=== PATIENT | female | born 1990 | race American Indian/Alaskan Native ===

== ENCOUNTER 2021-02-04 13:19 | Outpatient (CLI) | payer MEDICAID ==
--- NOTE | 2021-02-04 15:08 | Ultrasound Report ---
ULTRASOUND BREAST BILATERAL LIMITED, 02/04/2021 CLINICAL INFORMATION / INDICATION: Short-term follow-up bilateral ultrasound. TECHNIQUE: Targeted ultrasound evaluation was performed of the area of interest. COMPARISON: Prior bilateral breast ultrasound 05/09/2020 FINDINGS: In the right breast at 1:00, 3 cm from nipple, there is an oval well-circumscribed hypoechoic mass me asuring 2.1 x 0.7 cm. In the left breast at 12:00, 4 cm from the nipple, there is an oval well-circumscribed hypoechoic mas s measuring 1.8 x 0.6 cm. Compared to the prior breast ultrasounds, these masses appear grossly unchanged. IMPRESSION: Stable bilateral benign-appearing masses, as outlined above. These masses have an appeara nce consistent with bilateral fibroadenomas. There has not been significant interval change since the prior ultrasound of 05/09/2020. I was unable to visualize prior ultrasound imaging from 2019. Recomme nd additional bilateral follow-up ultrasound in 12 months to assess stability for 2 year time span. Follow up recommendation: Follow-up bilateral ultrasound in 12 months BI-RADS Category 3: Probably Benign. Followup in 12 months. A normal or "negative" report should not preclude biopsy or follow-up of a clinically suspicious find ing. Signer Name: Faith Mcgraw MD Signed: 02/04/2021 3:03 PM Workstation Name: [employer]
== END 2021-02-04 13:20 | disposition home or self-care (01) ==
LOC: SPVWC 13:19
PROVIDERS: ATTEND Surgery
DX: R92.2 Inconclusive mammogram (principal)